=== PATIENT | female | born 2000 | race Caucasian/White ===

== ENCOUNTER 2024-09-25 16:39 | Emergency (ER) | payer BC, SELFPAY ==
--- NOTE | 2024-09-25 16:48 | DOWNTIME ---
There was a [employer] Downtime on 09/25/2024 from 1230 to 09/25/2024 at 1550. Downtime documentation of patient's care, including medication administrations, has been reconciled in the electronic record per guidelines. Refer to the
patient's paper chart under the miscellaneous tab to see printed paper medication records and downtime forms.
[2024-09-25 17:00] VITALS: BP 134/72
--- NOTE | 2024-09-25 17:21 | DOWNTIME ---
There was a [employer] Downtime on 09/25/2024 from 1230 to 09/25/2024 at 1550. Downtime documentation of patient's care, including medication administrations, has been reconciled in the electronic record per guidelines. Refer to the
patient's paper chart under the miscellaneous tab to see printed paper medication records and downtime forms.
--- NOTE | 2024-09-25 17:32 | ED.GENMED ---
History of Present Illness
General
Chief Complaint: Abdominal Pain
Time Seen by Provider: 09/25/24 17:20
History of Present Illness
History of Present Illness:
24-year-old female presents the emergency department for ration lower abdominal pain that has been present for the past year or more. She states over the past month it has been worsening. She is concerned she could have Crohn's disease as it 'runs
in her family'. She reports darker stools recently but denies any visible blood in the stool. No recent diarrhea or night sweats, no weight loss.
Review of Systems
Review of Systems
Allergies reviewed?: Yes
All Other Systems: ROS reviewed and negative except as documented in HPI and ROS
Phy Exam
Physical Exam
Physical Exam:
GEN: Well appearing, NAD, WDWN
HEENT: Oral mucosa moist, no scleral icterus
Cardiac: Regular rate
Lung: No respiratory distress, no tachypnea
Abdomen: Soft, mildly tender to the lower abdomen, nonperitoneal
MSK: No gross deformity or injuries
Skin: Good color, no pallor or jaundice, no rashes
Neuro: AO x3, moves all extremities freely
Psych: Calm, cooperative
Course
Orders/Labs/Results
Orders:
Orders
09/25/24 17:32
Test Result ONCE
09/25/24 17:51
CRP [C-Reactive Protein] Urgent
Comprehensive Metabolic Panel Urgent
HCG, Serum Qualitative Screen Urgent
09/25/24 17:52
Complete Blood Count/With Diff Urgent
Abnormal Lab Results
09/25/24 09/25/24
17:51 17:52
MCV 78.8 L fL
(81.0-99.0)
MCH 25.5 L pg
(27.0-31.0)
MCHC 32.4 L g/dL
(33.0-37.0)
C-Reactive Protein 16.00 H mg/L
(0.0-10.00)
09/25/24 17:52
09/25/24 17:51
Vital Signs
Initial and Last Documented VS:
Initial Vital Signs
Pulse Resp BP Pulse Ox
79 20 134/72 99
09/25/24 17:00 09/25/24 17:00 09/25/24 17:00 09/25/24 17:00
Last Documented Vital Signs
Pulse Resp BP Pulse Ox
79 20 131/75 99
09/25/24 18:55 09/25/24 18:55 09/25/24 18:55 09/25/24 18:55
MDM/Problems Addressed
MDM/Problems Addressed:
Labs are reassuring, minimal elevation of CRP not consistent with acute Crohn's flareup. Patient has had pain for nearly 1 year thus I do not see any indication for acute imaging at this time, will recommend outpatient GI follow-up which she
already has scheduled
*Critical Care Note
Total Time (30-74mins, 75-104mins- exclusive of procedures): Not Applicable
ED Attending Note
-
Portions of this chart may have been created with voice recognition software.� Occasional wrong word or��sound alike� substitutions may have occurred due to the inherent limitations of voice recognition software.
Discharge Plan
Departure
Patient Disposition: Home (Routine Discharge)
Date of Disposition: 09/25/24
Time of Disposition: 18:43
Patient with high blood pressure during this ER visit?: No
Discharge Problem:
Lower abdominal pain
Instructions: Abdominal Pain
Prescriptions:
New
dicyclomine 20 mg tablet
20 mg PO TID Qty: 20 0RF
Referrals:
Jacqueline Branham NP [Family Provider, General]
Interventions
Interventions:
*Risk Screen - Suicide Last Done: 09/25/24 17:00
*General Assessment Last Done: 09/25/24 18:38
*Neglect/Abuse Screening Last Done: 09/25/24 18:38
*ED COVID-19 Vaccine History Last Done: 09/25/24 17:00
*Nursing Disposition Last Done: 09/25/24 18:55
PS-Sidtfb-Wizgqnrjls Assessment Last Done: 09/25/24 17:00
Discharge Date and Time
Discharge Date/Time: 09/25/24 18:55
Print Language: HAITIAN
[2024-09-25 18:03] LABS: % Basophils 0.3 % (0-2); % Eosinophils 0.6 % (0-6); % Immature Granulocytes 0.2 % (0-0.5); % Lymphocytes 28.6 % (20.5-51.1); % Neutrophils 65.3 % (42.2-75.2); Absolute Eosinophils 0.1 10^3/uL (0-0.7); Absolute Lymphocytes 2.7 10^3/uL (1.2-3.4); Absolute Monocytes 0.5 10^3/uL (0.1-0.6); Absolute Neutrophils 6.1 10^3/uL (1.4-6.5); Hematocrit 38.3 % (37.0-47.0); Hemoglobin 12.4 g/dL (12.0-16.0); Mean Corp Hgb Conc. 32.4 g/dL (33.0-37.0); Mean Corpuscular Hgb 25.5 pg (27.0-31.0); Mean Corpuscular Volume 78.8 fL (81.0-99.0); Mean Platelet Volume 9.7 fL (7.4-10.4); Nucleated Red Blood Cells % 0 %; Platelet Count 343 10^3/uL (130-400); Red Blood Cell Count 4.86 10^6/uL (4.20-5.40); Red Cell Dist. Width 14.2 % (11.5-14.5); White Blood Cell Count 9.3 10^3/uL (4.8-10.8)
[2024-09-25 18:12] LABS: HCG, Serum Qualitative Screen Negative
[2024-09-25 18:15] LABS: ALT (SGPT) 27 U/L (0-35); AST (SGOT) 22 U/L (14-36); Albumin 4.7 g/dl (3.5-5.0); Alkaline Phosphatase 73 U/L (38-126); Blood Urea Nitrogen 9 mg/dl (7-17); Calcium 9.7 mg/dl (8.4-10.2); Carbon Dioxide 29 mmol/L (22-30); Chloride 106 mmol/L (98-107); Glucose 92 mg/dl (70-99); Potassium 4.2 mmol/L (3.5-5.1); Sodium 141 mmol/L (135-145); Total Bilirubin 0.4 mg/dl (0.2-1.3); Total Protein 7.6 g/dl (6.3-8.2); eGFR > 60.00
[2024-09-25 18:55] VITALS: BP 131/75
== END 2024-09-25 18:55 | disposition home or self-care (01) ==
LOC: EMR 16:39
PROVIDERS: Physician Assistant; EMERGENCY PHYSICIAN Emergency Medicine; FAMILY PHYSICIAN Nurse Practitioner Gerontology
DX: R10.30 Lower abdominal pain, unspecified (principal)
CPT/HCPCS: 99283; 80053; 84703; 85025; 86140

== ENCOUNTER 2024-09-28 10:43 | Emergency (ER) | payer BC, SELFPAY ==
[2024-09-28 10:49] VITALS: BP 131/84
[2024-09-28] MEDS: MAALOX 30 ML PO (12:12)
[2024-09-28] MEDS: XYLOCAINE VISCOUS CUP 15 ML PO (12:12)
[2024-09-28] MEDS: PEPCID 20 MG PO (12:12)
[2024-09-28 12:22] VITALS: BMI 41.6
--- NOTE | 2024-09-28 12:22 | ED.GENMED ---
History of Present Illness
General
Chief Complaint: Abdominal Pain
Time Seen by Provider: 09/28/24 11:26
History of Present Illness
History of Present Illness:
24-year-old female with history of bipolar disorder presenting to the emergency department for abdominal discomfort. Patient reports for the past year she has had midline abdominal discomfort and issues with gastric reflux. She does have family
history of Crohn's disease, however is not diagnosed with Crohn's disease herself. She is due to follow-up with the GI doctor on October 29 given her ongoing symptoms. Note that she has been taking pantoprazole for her reflux, however symptoms are
still persistent. She was seen in the hospital a few days ago, with report of diarrhea. Patient was prescribed Bentyl. She now reports that she is having constipation. Denies fever. Denies chest pain or difficulty breathing. Denies fever.
Denies any history of abdominal surgeries. Denies additional acute medical complaints
Phy Exam
Physical Exam
Physical Exam:
General: Well-appearing, no clinical signs of dehydration, nontoxic and in no acute distress
HEENT: protecting airway
Neck: appears supple
CV: Normal heart rate, regular rhythm
Resp: No accessory muscle use, no increased work of breathing, lungs clear to auscultation bilaterally
Abd: Soft and non-distended, generalized nonfocal tenderness, soft and nondistended
Extremities: No deformities, no swelling
Neuro: alert, no focal neurologic deficit
: deferred
Rectal: deferred
Psych: Normal affect
Skin: Intact
Course
Orders/Labs/Results
Orders:
Orders
09/28/24 12:02
Famotidine [Pepcid] 20 mg PO NOW STA
Mag Hydrox/Al Hydrox/Simeth [Maalox] 30 ml PO NOW STA
09/28/24 12:03
Viscous Lidocaine 2% [Xylocaine Viscous Cup] 15 ml PO ONCE ONE
09/28/24 12:21
Complete Blood Count/With Diff Urgent
Comprehensive Metabolic Panel Urgent
Lipase Urgent
Vital Signs
Initial and Last Documented VS:
Initial Vital Signs
Temp Pulse Resp BP Pulse Ox
98.8 F 90 16 131/84 99
09/28/24 10:49 09/28/24 10:49 09/28/24 10:49 09/28/24 10:49 09/28/24 10:49
Last Documented Vital Signs
Temp Pulse Resp BP Pulse Ox
98.8 F 90 16 131/84 99
09/28/24 10:49 09/28/24 10:49 09/28/24 10:49 09/28/24 10:49 09/28/24 10:49
MDM/Problems Addressed
MDM/Problems Addressed:
24-year-old female with history of bipolar disorder presenting to the emergency department for generalized abdominal pain and indigestion. Vital signs are normal.
On exam patient resting comfortably, no acute distress or discomfort. Patient seen in the hospital a few days ago, unremarkable workup at that time. Patient's midline abdominal discomfort has been ongoing for the past year. Does not appear to be
an acute issue. Patient reports that she is not having diarrhea, is now constipated after taking Bentyl. Advised that she stop taking the Bentyl, however overall suspect possible underlying IBS. Afebrile, nontoxic with reassuring abdominal exam.
Without current indication for advanced imaging. Additionally, patient notes that she had outpatient CT imaging 2 weeks ago, unremarkable. Suspect upper abdominal discomfort is from indigestion. Will administer GI cocktail. Will repeat
laboratory analysis to ensure no interval change with ultimate plan to continue follow-up with GI as scheduled.
*Critical Care Note
Total Time (30-74mins, 75-104mins- exclusive of procedures): Not Applicable
ED Attending Note
-
Portions of this chart may have been created with voice recognition software.� Occasional wrong word or��sound alike� substitutions may have occurred due to the inherent limitations of voice recognition software.
Discharge Plan
Departure
Patient with high blood pressure during this ER visit?: No
Condition: Good
Discharge Problem:
Generalized abdominal pain, Indigestion
Instructions: Abdominal Pain, Gastritis (DC)
Prescriptions:
No Action
dicyclomine 20 mg tablet
20 mg PO TID Qty: 20 0RF
Referrals:
Jacqueline Branham NP [Family Provider, General]
Activity Restrictions/Additional Instructions:
You were seen in the emergency department for abdominal discomfort
You were found to have reassuring examination, vital signs, laboratory analysis. Please follow-up closely with your GI doctor as scheduled.
Please follow-up closely with your primary care physician.
Return to the emergency department for any worsening of your symptoms, or any development of chest pain, difficulty breathing, abdominal pain with persistent vomiting and inability to tolerate food or liquid by mouth (concern for dehydration),
weakness, headache or confusion, fever greater than 100.4, or any additional symptoms that are concerning to you.
Thank you for choosing [facility].
Interventions
Interventions:
*Risk Screen - Suicide Last Done: 09/28/24 12:23
*General Assessment Last Done: 09/28/24 12:23
*Neglect/Abuse Screening Last Done: 09/28/24 12:23
*ED- Fall Risk Assessment Last Done: 09/28/24 12:23
*ED COVID-19 Vaccine History Last Done: 09/28/24 12:23
YG-Zwlvpa-Ibdrsmoqxa Assessment Last Done: 09/28/24 12:24
Discharge Date and Time
Print Language: PORTUGUESE
[2024-09-28 12:25] VITALS: BP 109/70
[2024-09-28 12:29] LABS: % Basophils 0.4 % (0-2); % Eosinophils 0.8 % (0-6); % Immature Granulocytes 0.3 % (0-0.5); % Lymphocytes 29.9 % (20.5-51.1); % Monocytes 6.7 % (1.7-9.3); % Neutrophils 61.9 % (42.2-75.2); Absolute Eosinophils 0.1 10^3/uL (0-0.7); Absolute Lymphocytes 2.2 10^3/uL (1.2-3.4); Absolute Monocytes 0.5 10^3/uL (0.1-0.6); Absolute Neutrophils 4.6 10^3/uL (1.4-6.5); Hematocrit 35.2 % (37.0-47.0); Hemoglobin 11.7 g/dL (12.0-16.0); Mean Corp Hgb Conc. 33.2 g/dL (33.0-37.0); Mean Corpuscular Hgb 25.8 pg (27.0-31.0); Mean Corpuscular Volume 77.7 fL (81.0-99.0); Mean Platelet Volume 9.2 fL (7.4-10.4); Nucleated Red Blood Cells % 0 %; Platelet Count 306 10^3/uL (130-400); Red Blood Cell Count 4.53 10^6/uL (4.20-5.40); Red Cell Dist. Width 14.5 % (11.5-14.5); White Blood Cell Count 7.4 10^3/uL (4.8-10.8)
[2024-09-28 12:58] LABS: ALT (SGPT) 24 U/L (0-35); AST (SGOT) 23 U/L (14-36); Albumin 4.4 g/dl (3.5-5.0); Alkaline Phosphatase 55 U/L (38-126); Blood Urea Nitrogen 10 mg/dl (7-17); Calcium 9.5 mg/dl (8.4-10.2); Carbon Dioxide 27 mmol/L (22-30); Chloride 108 mmol/L (98-107); Estimated Creatinine Clearance > 125 ml/min; Glucose 99 mg/dl (70-99); Lipase 57 U/L (23-300); Potassium 5.2 mmol/L (3.5-5.1); Sodium 140 mmol/L (135-145); Total Bilirubin 0.2 mg/dl (0.2-1.3); Total Protein 7.2 g/dl (6.3-8.2); eGFR > 60.00
[2024-09-28 13:00] VITALS: BP 106/62
[2024-09-28 13:38] VITALS: BP 106/73
== END 2024-09-28 13:45 | disposition home or self-care (01) ==
LOC: EMR 10:43
PROVIDERS: EMERGENCY PHYSICIAN Student in an Organized Health Care Education/Training Program; FAMILY PHYSICIAN Nurse Practitioner Gerontology
DX: K30 Functional dyspepsia (principal); R10.84 Generalized abdominal pain; K21.9 Gastro-esophageal reflux disease without esophagitis; Z79.899 Other long term (current) drug therapy
CPT/HCPCS: 99283; 80053; 83690; 85025